=== PATIENT | female | born 1980 | race Caucasian/White ===

== ENCOUNTER 2019-01-28 06:05 | Emergency (ER) | payer MEDICAID ==
[2019-01-28 07:01] LABS: BASOPHILS % (AUTO) 0.6 % (0.0-5.0); EOSINOPHILS % (AUTO) 0.8 % (0.0-8.0); HEMATOCRIT 42.2 % (36-48); LYMPHOCYTES % (AUTO) 18.9 % (21.0-51.0); MEAN CORPUSCULAR HEMOGLOBIN 27.5 pg (27.0-33.0); MEAN CORPUSCULAR HGB CONC 32.4 g/dL (32.0-36.0); MEAN CORPUSCULAR VOLUME 84.9 fL (79-99); MONOCYTES % (AUTO) 6.9 % (3.0-13.0); NEUTROPHILS % (AUTO) 72.8 % (40.0-77.0); NUCLEATED RED BLOOD CELLS 0.1 % (0.0-0.19); PLATELET COUNT (AUTO) 217 K/uL (130-400); RED BLOOD CELL COUNT(AUTO) 4.97 MIL/uL (4.00-5.50); RED CELL DISTRIBUTION WIDTH 13.5 % (11.0-15.5)
[2019-01-28 07:14] LABS: CREATININE 0.8 mg/dL (0.5-1.5)
[2019-01-28 07:17] LABS: INR 0.93 (0.85-1.15); PROTHROMBIN TIME 9.8 SEC (9.6-11.6)
[2019-01-28 07:19] LABS: BILIRUBIN,URINE Negative (NEGATIVE); COLOR,URINE Yellow (YELLOW); GLUCOSE, URINE (UA) Negative (NEGATIVE); KETONES,URINE Negative (NEGATIVE); LEUKOCYTE ESTERASE ,URINE Negative (NEGATIVE); NITRATE,URINE Negative (NEGATIVE); OCCULT BLOOD,URINE Negative (NEGATIVE); PH,URINE 5.5 (5.0-8.0); PROTEIN,URINE Negative (NEGATIVE); UROBILINOGEN,URINE 0.2 mg/dL (0.2-1.0)
[2019-01-28 07:20] LABS: HCG,QUAL RESULT NEGATIVE (NEGATIVE)
[2019-01-28 07:21] LABS: APPEARANCE,URINE CLEAR (CLEAR)
[2019-01-28 07:21] LABS: ALBUMIN 3.9 g/dL (3.5-5.0); BILIRUBIN,TOTAL 0.3 mg/dL (0.2-1.0); TOTAL PROTEIN, SERUM 7.6 g/dL (6.0-8.3)
[2019-01-28] MEDS ORDERED: IOHEXOL-350 75 ML VIAL IV ONE (07:50)
[2019-01-28] MEDS ORDERED: KETOROLAC TROMETHAMINE 30MG/ML ONE (08:58)
== END 2019-01-28 09:16 | disposition home or self-care (01) ==
LOC: EDH 06:05
DX: K59.00 Constipation, unspecified (principal); Z90.49 Acquired absence of other specified parts of digestive tract; Z94.7 Corneal transplant status; Z79.899 Other long term (current) drug therapy
CPT/HCPCS: 36415; 71045; 74177; 80053; 81003; 81025; 82550; 83690; 84484; 85025; 85610; 85730; 93005; 96374; 99285; J1885; Q9967

== ENCOUNTER → 2024-05-01 | Outpatient (CLI) | payer MEDICAID | END | disposition home or self-care (01) | LOC: SHCH 08:26 | PROVIDERS: ATTEND Internal Medicine Cardiovascular Disease | DX: I34.0 Nonrheumatic mitral (valve) insufficiency (principal); R06.01 Orthopnea | CPT/HCPCS: 93306 ==

== ENCOUNTER 2024-10-12 08:56 | Emergency (ER) | payer MEDICAID ==
[~2024-10-12] VITALS: Ht 162.6 cm; Wt 79.4 kg
--- NOTE | 2024-10-12 10:08 | HMCIMG ---
RIGHT SHOULDER RADIOGRAPHS - 2-3 VIEWS INDICATION: Pain COMPARISON: None FINDINGS: No fracture or dislocation identified. Acromioclavicular and glenohumeral alignments are well maintained. Visible portions of the right clavicle are intact. IMPRESSION: No evidence for fracture or dislocation.
[2024-10-12] MEDS: acetaMINOPHEN 500 MG TABLET PO ONE (10:31)
[2024-10-12] MEDS ORDERED: DICL20GE TP (11:02)
--- NOTE | 2024-10-12 11:03 | ERN ---
General Chief Complaint: LOWER EXTREMITY EDEMA Stated Complaint: DECREASED ROM RUE Time Seen by MD: 09:01 Source: patient History of Present Illness Initial Comments 44-year-old female coming in to be evaluated for right upper extremity pain. Patient states that she was up she does have shoulder pain and believes he might be associated to her cervical spine stenosis. Allergies: Coded Allergies: No Known Allergies (Unverified Allergy, Unknown, 01/28/19) Past Medical History Past Medical History: Other Medical History Other: THYROID ISSUES, SPINAL INJURY, RLE FOOT DROP Past Surgical History: Other Surgical History Other: CORNEAL TRANSPLANT ROS Dictation CONSTITUTIONAL: No chills, no fever, no weakness, no diaphoresis, no malaise. HEAD/FACE: No signs of trauma. EENT: No eye pain, no blurred vision, no tearing, no double vision, no ear pain, no ear discharge, no nose pain, no nasal congestion, no throat pain, no throat swelling, no mouth pain. RESPIRATORY: No cough, no orthopnea, no SOB, no stridor, no wheezing. CARDIOVASCULAR: No chest pain, no edema, no palpitations, no syncope. GASTROINTESTINAL/ABDOMINAL: No abdominal pain, no constipation, no diarrhea, no nausea, no vomiting. GENITOURINARY: No abnormal discharge, no dysuria, no frequent urination, no hematuria. No complaints of pain in the genitals. MUSCULOSKELETAL: No back pain, no gout, no joint pain, no joint swelling, no muscle pain, no muscle stiffness, no neck pain. INTEGUMENTARY: No change in color, no change in hair/nails, no dryness, no lesion, no lumps, no rash. NEUROLOGICAL/PSYCH: No anxiety, not depressed, no emotional problem, no headache, no numbness, no pre-existing deficit, no history of seizures, no tremors, no weakness. HEMATOLOGIC/LYMPHATIC: Not anemic, no history of blood clots, no apparent bleeding, no bruising, glands not swollen. All Systems Negative, Except as Noted. Physical Exam Physical Exam Dictation VITAL SIGNS: Reviewed. GENERAL APPEARANCE: Alert, oriented x3, no acute distress, obese. HEAD AND FACE: Non-traumatic. EYES: PERRL, pink conjunctivas, eyelid no trauma, anterior chamber clear. EARS: Pinnas intact and no signs of trauma or erythema. Ear canals clear and no discharge. TMs no erythema. NOSE: No discharge, no bleeding. OROPHARYNX: Mouth normal, teeth no caries, tongue pink. Pharynx clear, no erythema. Tonsils no exudates, no abscesses noted. Mucous membrane moist. NECK: Supple, non-tender, no thyromegaly, no masses, no JVD, no bruits. BREAST: Deferred. CHEST: No tenderness, no crepitus, no paradoxical movement, no retractions. LUNGS: Clear, well-ventilated, symmetric, no rales, no wheezing, no rhonchi, no stridor, good breath sounds bilaterally. HEART: Regular rate, regular rhythm, no murmur, no gallops. VASCULAR: No peripheral edema. ABDOMEN: Soft, positive bowel sounds, nondistended, no guarding, nontender, no rebound, no masses no hepatomegaly, no splenomegaly, no Hanson's sign, no hernias. RECTAL: Deferred. GENITAL: Deferred. NEUROLOGICAL: Normal speech, gross motor function intact, gross sensory function intact. MUSCULOSKELETAL: Neck nontender, full range of motion, back nontender, full range of motion. EXTREMITIES: Nontender, full range of motion. Right shoulder pain on palpation, deltoid tenderness SKIN: Color pink, dry, no turgor, no rash, no lacerations, no abrasions, no contusions. LYMPHATICS: Deferred. Results Laboratory and Microbiology Labs Reviewed?: Yes EKG/XRAY/US/CT/MRI X-RAY Comment [place] [id number] [place] [id number] IMAGING REPORT Signed PATIENT: POP LAZAR MR#: [id number] : 1980 SEX: F AGE: 44 LOCATION: [facility] ORDER 1 STATUS: REG REPORT#: [id number] SERVICE 0 REASON: pain ORDERING PHYSICIAN: MASON FERNANDEZ MD PROCEDURE: SHOL 2V RT - SHOULDER COMP 2+VWS RT RIGHT SHOULDER RADIOGRAPHS - 2-3 VIEWS INDICATION: Pain COMPARISON: None FINDINGS: No fracture or dislocation identified. Acromioclavicular and glenohumeral alignments are well maintained. Visible portions of the right clavicle are intact. IMPRESSION: No evidence for fracture or dislocation. DICTATED BY: SHEMAR RAYO MD DATE: 10/12/24 1001 ELECTRONICALLY SIGNED BY: SHEMAR RAYO MD DATE: 10/12/24 1008 MDM MDM: Differential diagnosis: Shoulder strain, muscle strain, Rationale: Tests considered and ordered secondary to shared decision making include: Previous outside records reviewed: Old ER visits. Risk of complication and/or morbidity or mortality of patient management: None Patient is a 44-year-old female coming in to be evaluated for right shoulder pain. On physical exam tenderness to palpation pain is exacerbated with movement. Patient was worried because she has a history of cervical stenosis. Patient will be discharged in stable condition with a diagnosis of deltoid strain. A sling will be provided. I did advised patient appropriate follow up with PCP in 1-2 days. ED Course Orders Procedure Category Date Status Time Shoulder Comp 2+Vws Rt RAD 10/12/24 Resulted 09:21 Sling FRANCISCO 10/12/24 In Process 09:21 ,Urine Test LAB 10/12/24 Logged 09:21 Acetaminophen 500mg PHA 10/12/24 Complete Tab (Tylenol 500mg T 09:30 Current Medications Medications (Trade) Dose Ordered Sig/Rodríguez Route PRN Reason Start Time Stop Time Status Last Admin Dose Admin Acetaminophen (TYLenol 500MG TAB) 500 mg ONCE ONCE PO 10/12/24 09:30 10/12/24 09:32 DC 10/12/24 10:31 Vital Signs Date Time Temp Pulse Resp B/P (MAP) Pulse Ox O2 Delivery O2 Flow Rate FiO2 10/12/24 10:40 70 17 150/78 96 Room Air* 0 21 DX & DISP Disposition: Discharge Departure Impression: Primary Impression: Right shoulder strain Condition: Stable Scripts Diclofenac Sodium (Voltaren Arthritis Pain) 1 % Gel..gram. 4 GM TP BID for 7 Days, #1 TUBE Prov: MASON FERNANDEZ MD 10/12/24 Additional Instructions: FOLLOW-UP WITH PRIMARY CARE PROVIDER IN 1 TO 2 DAYS. TAKE MEDICATIONS DIRECTED HERE IN THE EMERGENCY ROOM. OKAY TO CONTINUE HOME MEDICATIONS UNLESS OTHERWISE DISCUSSED DURING YOUR VISIT IN THE EMERGENCY ROOM TODAY. RETURN TO YOUR NEAREST EMERGENCY ROOM IF SYMPTOMS WORSEN OR IF THERE IS NO IMPROVEMENT. CALL 911 IF YOU NEED IMMEDIATE ASSISTANCE. TAKE TYLENOL [id number] NEEDED AND IF NO CONTRAINDICATIONS ARE PRESENT. INCREASE ORAL HYDRATION. A WOUND CULTURE OR URINE CULTURE WAS ORDERED HERE IN THE EMERGENCY ROOM DEPARTMENT PLEASE FOLLOW-UP WITH PRIMARY CARE PROVIDER AND ADVISE THEM TO GET REPEAT PORTS FROM OUR FACILITY. IF YOU HAD ANY AI WRAP/SPLINTS THAT WERE APPLIED HERE, PLEASE DO NOT REMOVE THEM UNTIL YOU SEE YOUR PRIMARY CARE OR SPECIALTY. Referrals: Referrals: YUMI LARA MD (PCP) Time of Disposition: 11:01 MASON FERNANDEZ MD Oct 12, 2024 11:02
[2024-10-12 11:08] VITALS: BP 121/70; PULSE 70; RESP 17; O2SAT 98
== END 2024-10-12 11:26 | disposition home or self-care (01) ==
LOC: EDH 08:56
DX: S46.911A Strain of unspecified muscle, fascia and tendon at shoulder and upper arm level, right arm, initial encounter (principal); X58.XXXA Exposure to other specified factors, initial encounter; Y93.89 Activity, other specified; Y92.89 Other specified places as the place of occurrence of the external cause; Y99.8 Other external cause status
CPT/HCPCS: 73030; 99284